=== PATIENT | female | born 1980 | race Caucasian/White ===

== ENCOUNTER 2020-05-31 19:09 | Emergency (ER) | payer OTHER ==
[2020-05-31 19:58] LABS: BASOPHIL 0.3 % (0-2); EOSINOPHIL 1.8 % (0-5); HCT 38.6 % (37.0-47.0); HGB 12.7 g/dl (12.5-16.0); LYMPHOCYTE 28.6 % (15-48); MCH 28.2 pg (25.0-31.0); MCHC 32.9 g/dL (32.0-36.0); MCV 85.8 fL (78.0-100.0); MONOCYTE 5.7 % (0-12); MPV 9.3 fL (6.0-9.5); NEUTROPHIL 63.4 % (41-80); NRBC 0; PLT 232 K/uL (150-400); RDW 12.2 % (11.5-14.0); WBC 6.2 K/uL (4.0-10.5)
[2020-05-31 20:05] LABS: INR 1.04 (0.9-1.2); PROTHROMBIN TIME 12.9 SECONDS (11.4-13.6); PTT 26.9 SECONDS (22.2-34.7)
[2020-05-31 20:26] LABS: BILIRUBIN - TOTAL 0.2 mg/dL (0.2-1.0); BUN/CREAT RATIO (CALC) 19.4 RATIO; C-REACTIVE PROTEIN 0.4 mg/dL (<=0.90); CREATININE 0.72 mg/dL (0.51-0.95); GLOBULIN (CALCULATION) 3.6 g/dL; MAGNESIUM 2.2 mg/dL (1.8-2.4); POTASSIUM 3.5 mmol/L (3.5-5.1); TOTAL PROTEIN 7.6 g/dL (6.4-8.2)
== END 2020-06-01 02:55 | disposition other institution (70) ==
LOC: FER 19:09
PROVIDERS: Emergency Medicine
DX: R20.2 Paresthesia of skin (principal); H54.7 Unspecified visual loss; E87.3 Alkalosis; Z88.0 Allergy status to penicillin; Z88.1 Allergy status to other antibiotic agents; Z88.8 Allergy status to other drugs, medicaments and biological substances; Z20.822 Contact with and (suspected) exposure to COVID-19
CPT/HCPCS: 36415; 36600; 70450; 71045; 80053; 82728; 82803; 83605; 83615; 83735; 84145; 84484; 85025; 85610; 85730; 86140; 93005; J2405; U0002